=== PATIENT | female | born 1955 | race Two or more races ===

== ENCOUNTER → 2016-09-02 | Outpatient (CLI) | payer MEDICARE, OTHER ==
--- NOTE | ~2016-09-02 | MY11 ---
[facility] A Service of [facility] RADIOLOGY TEXT RESULTS PATIENT: ILEANA DELCID LOCATION: [facility] : 57 UNIT #: [id number] AGE: [address]: Justin Lopez MD SEX: F ORDER DR: [id number] [facility] [address] [place], [place] [address] [id number] O MR#: [id number] Acc #: [id number] NAME: ILEANA DELCID : 1955 SEX: F STUDY DATE/TIME: 09/02/2016 16:05 UNIT: [facility] ROOM: STUDY DESCRIPTION: MY Mammogram Screening Dig Tk Attending Physician: Justin Lopez M.D. Referring Physician: Justin Lopez M.D. Ordering Physician: Justin Lopez M.D. Primary Care Physician: Justin Lopez M.D. MEDICAL IMAGING REPORT This report is preliminary unless electronic signature is present EXAM Bilateral digital screening mammogram CAD Date 09/02/2016 HISTORY A 61-year-old female with no personal or family history of breast cancer or current complaints. COMPARISON Bilateral screening mammogram performed at [facility], 12/14/2014, 08/16/2013, 08/12/2012. FINDINGS CC and MLO views were obtained of each breast utilizing digital technique and reviewed with an FDA-approved CAD device. Scattered fibroglandular densities are present bilaterally. The parenchymal pattern appears stable. Fibronodular density within the central third left breast upper outer quadrant appears stable compared to the most remote available study from 2012, in keeping with benign finding. Coarse, benign-appearing calcifications seen in the central third of the right breast. No suspicious clustered microcalcifications. Scattered benign calcifications within each breast. No abnormal skin thickening or nipple retraction. IMPRESSION BIRADS 2. Benign findings. Routine bilateral screening mammogram is recommended in year. Patients over the age of 40 are entered into a reminder system with target due date for the next mammogram. A result letter will also be sent to the [facility] A Service of [facility] RADIOLOGY TEXT RESULTS PATIENT: ILEANA DELCID LOCATION: [facility] : 57 UNIT #: [id number] AGE: [address]: Justin Lopez MD SEX: F ORDER DR: patient. BIRADS: 2 Benign Finding Dictated by... Gisselle Rodrigues M.D. THIS IS AN ELECTRONICALLY VERIFIED REPORT Gisselle Rodrigues M.D. at 09/06/2016 2:22 PM SOFÍA/jeremias TD: 09/05/2016 14:18 JOB #: [id number] MEDICAL IMAGING REPORT Page 1 of 1 COPY
== END | disposition home or self-care (01) ==
LOC: CWCC 15:55
DX: Z12.31 Encounter for screening mammogram for malignant neoplasm of breast (principal)
CPT/HCPCS: G0202